=== PATIENT | male | born 1980 | race Caucasian/White ===

== ENCOUNTER 2019-07-10 06:10 | Emergency (ER) | payer SELFPAY ==
[2019-07-10 06:16] VITALS: BP 119/78
[2019-07-10 07:15] LABS: A TYPE INFLUENZA AG NEGATIVE (NEGATIVE); B INFLUENZA AG NEGATIVE (NEGATIVE)
--- NOTE | 2019-07-10 07:48 | ER Document Report ---
ED ENT - General Chief Complaint: Sinus Pain Stated Complaint: POSSIBLE SINUS INFECTION Time Seen by Provider: 07/10/19 07:42 Notes: CHIEF COMPLAINT: Sinus congestion for 1 day HPI: 38-year-old male who smokes presenting for sinus congestion for 1 day. No fever. Took no medications for symptoms. ROS: See HPI - all other systems were reviewed and are otherwise negative Constitutional: no fever Eyes: no drainage, no blurred vision ENT: Positive runny nose, no sore throat, positive sinus pain Cardiovascular: no chest pain Resp: no SOB, no cough GI: no vomiting, no diarrhea, no abdominal pain : no dysuria Integumentary: no rash Allergy: no hives Musculoskeletal: no extremity pain or swelling Neurological: no numbness/tingling, no weakness MEDICATIONS: I agree with the patient medications as charted by the RN. ALLERGIES: I agree with the allergies as charted by the RN. PAST MEDICAL HISTORY/PAST SURGICAL HISTORY: Reviewed and agree as charted by RN. SOCIAL HISTORY: Reviewed and agree as charted by RN. FAMILY HISTORY: No significant familial comorbid conditions directly related to patient complaint EXAM: Reviewed vital signs as charted by RN. CONSTITUTIONAL: Alert and oriented and responds appropriately to questions. Well-appearing; well-nourished, no acute distress HEAD: Normocephalic; atraumatic EYES: PERRL; Conjunctivae clear, sclerae non-icteric ENT: normal nose; positive clear rhinorrhea; minimal tenderness over the bilateral maxillary sinuses on palpation, moist mucous membranes; pharynx without lesions noted, no uvula edema or deviation, no tonsillar hypertrophy, phonation normal. No visible facial swelling NECK: Supple without meningismus; non-tender; no cervical lymphadenopathy, no masses CARD: RRR; no murmurs, no clicks, no rubs, no gallops; symmetric distal pulses RESP: Normal chest excursion without splinting or tachypnea; breath sounds clear and equal bilaterally; no wheezes, no rhonchi, no rales, pulse oximetry 98% on room air not hypoxic ABD/GI: Normal bowel sounds; non-distended; soft, non-tender, no rebound, no guarding; no palpable organomegaly or masses. BACK: The back appears normal and is non-tender to palpation, there is no CVA tenderness EXT: Normal ROM in all joints; no cyanosis, no effusions, no edema SKIN: Normal color for age and race; warm; dry; good turgor; no acute lesions noted NEURO: Moves all extremities equally; Motor and sensory function intact PSYCH: The patient's mood and manner are appropriate. Grooming and personal hygiene are appropriate. MDM: 38-year-old male presenting for sinus congestion for [address] him on Flonase, Sudafed, follow-up PCP recommended stop smoking TRAVEL OUTSIDE OF THE [place] IN LAST 30 DAYS: No - Related Data Allergies/Adverse Reactions: No Known Allergies Allergy (Verified 07/10/19 06:15) Past Medical History - Social History Smoking Status: Current Every Day Smoker Frequency of alcohol use: None Drug Abuse: Heroin Family History: Reviewed & Not Pertinent Patient has homicidal ideation: No Past Surgical History: Reports: Hx Inguinal Hernia - Immunizations Hx Diphtheria, Pertussis, Tetanus Vaccination: Yes Physical Exam - Vital signs Vitals: Temp Pulse Resp BP Pulse Ox 98.1 F 82 18 119/78 97 07/10/19 06:14 07/10/19 06:14 07/10/19 06:14 07/10/19 06:14 07/10/19 06:14 Course - Vital Signs Vital signs: Temp Pulse Resp BP Pulse Ox 98.1 F 82 18 119/78 97 07/10/19 06:18 07/10/19 06:14 07/10/19 06:14 07/10/19 06:14 07/10/19 06:14 Discharge - Discharge Clinical Impression: Maxillary sinusitis Qualifiers: Chronicity: acute Recurrence: not specified as recurrent Qualified Code(s): J01.00 - Acute maxillary sinusitis, unspecified Condition: Stable Disposition: HOME, SELF-CARE Instructions: Sinusitis ([facility]) Additional Instructions: Use the nasal spray as prescribed, take the medications as prescribed. Stop smoking. Follow-up with primary care provider for reevaluation of symptoms. Return to the emergency department if you develop fever greater than 101 or significant facial swelling or redness Prescriptions: Fluticasone Propionate [Flonase Nasal [place] 50 Mcg/[place] 16 gm] 1 spray NASL Q12 #1 inhaler Pseudoephedrine HCl [Sudafed 12 Hour] 120 mg PO BID #20 tablet.er Forms: Smoking Cessation Education Referrals: CHRISTINA AMR MD [ACTIVE STAFF] - Follow up as needed
== END 2019-07-10 08:05 | disposition home or self-care (01) ==
LOC: ER 06:10
DX: J01.00 Acute maxillary sinusitis, unspecified (principal); R09.81 Nasal congestion; J34.89 Other specified disorders of nose and nasal sinuses; F17.200 Nicotine dependence, unspecified, uncomplicated
CPT/HCPCS: 87804; 99283